=== PATIENT | female | born 1945 | race Caucasian/White ===

== ENCOUNTER → 2019-02-14 | Outpatient (CLI) | payer MEDICARE ==
--- NOTE | 2019-02-15 10:56 | CRLMY ---
INDICATION: Bilateral Screening Mammogram, Asymptomatic Female age 74 been obtained using full-field digital technique. These mammographic images were interpreted with the benefit of computer-aided detection. COMPARISON FILM: 01/20/17, 08/07/15. FINDINGS: The breast tissue is almost entirely fat. There are no masses or calcifications that are suspicious for malignancy. IMPRESSION: There is no radiographic evidence for malignancy. ASSESSMENT: BI-RADS Category 2: Benign RECOMMENDATION: Routine screening mammogram in 1 year. A lay language report of this examination will be provided to the patient. Breast Tomosynthesis was used in this interpretation. [email or web address] Dictated by: Alverto [email or web address] @ 02/15/2019 10:55:06 (Electronically Signed)
== END ==
LOC: JP.MAM 10:16
PROVIDERS: ATTEND Family Medicine
DX: Z12.31 Encounter for screening mammogram for malignant neoplasm of breast (principal)
CPT/HCPCS: 77063; 77067

== ENCOUNTER 2021-11-30 11:01 | Inpatient (IN) | payer MEDICARE ==
[2021-11-30] MEDS ORDERED: Sodium Chloride 0.9% 10 ML Syringe FLUSH PRN ×4 (11:05→15:40)
[2021-11-30 12:16] LABS: CORONAVIRUS COVID-19 NAA POSITIVE (NEGATIVE)
[2021-11-30] MEDS ORDERED: Sodium Chloride 0.9% 100 ML IV ONE (12:27)
[2021-11-30] MEDS ORDERED: Iopamidol 755 Mg/ML 100 ML Bottle IV SCH (12:30)
[2021-11-30] MEDS ORDERED: Aspirin 325 MG Tab.EC PO ONE (13:40)
[2021-11-30] MEDS ORDERED: Clopidogrel 75 MG Tab PO ONE (13:41)
[2021-11-30] MEDS ORDERED: Polyethylene Glycol 3350 Powder 17 GM Packet PO PRN (15:40)
[2021-11-30] MEDS ORDERED: Ondansetron 4 MG/2 ML SDV IV PRN (15:40)
[2021-11-30] MEDS: Enoxaparin 30 MG/0.3 ML Syringe SUBCUT SCH (16:17)
[2021-11-30] MEDS: Sodium Chloride 0.9% 1,000 ML IV SCH (17:36)
[2021-12-01] MEDS: Sodium Chloride 0.9% 1,000 ML IV SCH (01:53)
[2021-12-01] MEDS: Acetaminophen 325 MG Tab PO PRN ×3 (01:55→20:10)
[2021-12-01] MEDS: Aspirin 81 MG Tab.Chew PO SCH (08:36)
[2021-12-01] MEDS: Clopidogrel 75 MG Tab PO SCH (08:37)
[2021-12-01] MEDS ORDERED: Lisinopril 10 MG Tab PO SCH (14:15)
[2021-12-01] MEDS: Enoxaparin 30 MG/0.3 ML Syringe SUBCUT SCH (15:26)
[2021-12-01] MEDS: Pantoprazole 40 MG Tab.CR PO SCH (15:26)
[2021-12-01] MEDS: guaiFENesin 100 MG/5 ML Soln ML (118 ML Bottle) PO PRN (16:38)
[2021-12-01] MEDS ORDERED: Vancomycin 1 GM SDV IV SCH (18:00)
[2021-12-01] MEDS ORDERED: Meropenem 1 GM in Sodium Chloride 0.9% 100 ML IV SCH (18:00)
[2021-12-01] MEDS: Meropenem 500 MG in Sodium Chloride 0.9% 50 ML IV SCH (18:03)
[2021-12-01] MEDS: Levofloxacin/Dextrose 5%-Water 750 MG in Premix Bag 1 BAG IV SCH (19:57)
[2021-12-01] MEDS ORDERED: Vancomycin 2 GM in Sodium Chloride 0.9% 500 ML IV ONE (20:00)
[2021-12-01] MEDS ORDERED: ATORVASTATIN 40 MG PO SCH (21:00)
[2021-12-01] MEDS ORDERED: Water For Injection, Sterile 20 ML ONE (21:39)
[2021-12-02] MEDS: Acetaminophen 325 MG Tab PO PRN ×2 (03:38→22:26)
[2021-12-02] MEDS: Meropenem 500 MG in Sodium Chloride 0.9% 50 ML IV SCH ×2 (05:23→18:38)
[2021-12-02] MEDS ORDERED: Sodium Chloride 0.9% 1,000 ML IV SCH (08:15)
[2021-12-02] MEDS: Pantoprazole 40 MG Tab.CR PO SCH (08:40)
[2021-12-02] MEDS: Aspirin 81 MG Tab.Chew PO SCH (08:40)
[2021-12-02] MEDS: Clopidogrel 75 MG Tab PO SCH (08:40)
[2021-12-02] MEDS: Apixaban 5 MG Tab PO SCH ×3 (12:49→23:06)
[2021-12-02] MEDS: Diltiazem IR 30 MG Tab PO SCH ×4 (12:49→22:24)
[2021-12-02] MEDS: atorvaSTATin 20 MG Tab PO SCH (20:00)
[2021-12-02] MEDS: guaiFENesin 100 MG/5 ML Soln ML (118 ML Bottle) PO PRN (20:04)
[2021-12-02] MEDS ORDERED: LORazepam 1 MG Tab PO ONE (23:35)
[2021-12-03] MEDS: Diltiazem IR 30 MG Tab PO SCH ×4 (04:30→22:13)
[2021-12-03] MEDS: Meropenem 500 MG in Sodium Chloride 0.9% 50 ML IV SCH ×2 (05:45→17:28)
[2021-12-03] MEDS: Pantoprazole 40 MG Tab.CR PO SCH (07:34)
[2021-12-03] MEDS: Aspirin 81 MG Tab.Chew PO SCH (09:58)
[2021-12-03] MEDS: Magnesium Sulfate/Water 2 GM in Premix Bag 1 BAG IV SCH ×3 (09:58→22:12)
[2021-12-03] MEDS: Magnesium Oxide 400 MG Tab PO SCH ×2 (09:58→20:18)
[2021-12-03] MEDS: Apixaban 5 MG Tab PO SCH (12:13)
[2021-12-03] MEDS: Clopidogrel 75 MG Tab PO SCH (15:39)
[2021-12-03] MEDS: Levofloxacin/Dextrose 5%-Water 750 MG in Premix Bag 1 BAG IV SCH (20:16)
[2021-12-03] MEDS: atorvaSTATin 20 MG Tab PO SCH (20:18)
[2021-12-03] MEDS: Acetaminophen 325 MG Tab PO PRN (22:22)
[2021-12-04] MEDS: Diltiazem IR 30 MG Tab PO SCH ×4 (04:25→22:19)
[2021-12-04] MEDS: Meropenem 500 MG in Sodium Chloride 0.9% 50 ML IV SCH ×2 (05:23→17:38)
[2021-12-04] MEDS: Magnesium Oxide 400 MG Tab PO SCH ×2 (08:22→20:08)
[2021-12-04] MEDS: Enoxaparin 30 MG/0.3 ML Syringe SUBCUT SCH (08:22)
[2021-12-04] MEDS: Pantoprazole 40 MG Tab.CR PO SCH (08:22)
[2021-12-04] MEDS: Clopidogrel 75 MG Tab PO SCH (08:22)
[2021-12-04] MEDS: Aspirin 81 MG Tab.Chew PO SCH (08:22)
[2021-12-04] MEDS ORDERED: Potassium Chloride 20 MEQ Tab.ER PO ONE ×2 (09:00→15:00)
[2021-12-04] MEDS ORDERED: Enoxaparin 40 MG/0.4 ML Syringe SUBCUT SCH (09:00)
[2021-12-04] MEDS: Acetaminophen 325 MG Tab PO PRN (20:07)
[2021-12-04] MEDS: atorvaSTATin 20 MG Tab PO SCH (20:07)
[2021-12-05] MEDS: Diltiazem IR 30 MG Tab PO SCH ×2 (04:41→10:40)
[2021-12-05] MEDS: Meropenem 500 MG in Sodium Chloride 0.9% 50 ML IV SCH (05:00)
[2021-12-05] MEDS: Magnesium Oxide 400 MG Tab PO SCH ×2 (08:19→20:26)
[2021-12-05] MEDS: Enoxaparin 30 MG/0.3 ML Syringe SUBCUT SCH (08:19)
[2021-12-05] MEDS: Aspirin 81 MG Tab.Chew PO SCH (08:19)
[2021-12-05] MEDS: Clopidogrel 75 MG Tab PO SCH (08:20)
[2021-12-05] MEDS: Pantoprazole 40 MG Tab.CR PO SCH (08:21)
[2021-12-05] MEDS: Loperamide 2 MG Cap PO PRN (14:50)
[2021-12-05] MEDS: Levofloxacin/Dextrose 5%-Water 750 MG in Premix Bag 1 BAG IV SCH (18:06)
[2021-12-05] MEDS: Acetaminophen 325 MG Tab PO PRN ×2 (18:09→23:55)
[2021-12-05] MEDS: atorvaSTATin 20 MG Tab PO SCH (20:26)
[2021-12-05] MEDS: Melatonin 3 MG Tab PO PRN (21:49)
[2021-12-06] MEDS ORDERED: LORazepam 2 MG/ML SDV IVPUSH ONE (00:16)
[2021-12-06] MEDS ORDERED: Furosemide 20 MG/2 ML VIAL IVPUSH ONE (00:17)
[2021-12-06] MEDS: Pantoprazole 40 MG Tab.CR PO SCH (07:16)
[2021-12-06] MEDS: Aspirin 81 MG Tab.Chew PO SCH (08:10)
[2021-12-06] MEDS: Enoxaparin 30 MG/0.3 ML Syringe SUBCUT SCH (08:11)
[2021-12-06] MEDS: Magnesium Oxide 400 MG Tab PO SCH ×2 (08:11→20:58)
[2021-12-06] MEDS: Clopidogrel 75 MG Tab PO SCH (08:11)
[2021-12-06] MEDS ORDERED: Sodium Chloride 0.9% 10 ML Syringe FLUSH PRN (12:53)
[2021-12-06] MEDS ORDERED: Iopamidol 755 Mg/ML 100 ML Bottle IV SCH (13:00)
[2021-12-06] MEDS ORDERED: Sodium Chloride 0.9% 100 ML IV SCH (13:00)
[2021-12-06] MEDS ORDERED: Furosemide 40 MG/4 ML VIAL IVPUSH ONE (15:27)
[2021-12-06] MEDS ORDERED: Dexamethasone 4 MG/ML SDV IVPUSH SCH (16:00)
[2021-12-06] MEDS: Haloperidol Lactate 5 MG/ML SDV IVPUSH PRN ×3 (16:12→22:14)
[2021-12-06] MEDS: Acetaminophen 325 MG Tab PO PRN (16:12)
[2021-12-06] MEDS ORDERED: REMDESIVIR 200 MG in Sodium Chloride 0.9% 250 ML IV ONE (16:15)
[2021-12-06] MEDS ORDERED: Diltiazem 25 MG/5 ML SDV IVPUSH ONE (17:25)
[2021-12-06] MEDS: Diltiazem 100 MG in Sodium Chloride 0.9% 100 ML IV SCH (18:20)
[2021-12-06] MEDS: atorvaSTATin 20 MG Tab PO SCH (20:59)
[2021-12-06] MEDS: Melatonin 3 MG Tab PO PRN (22:14)
[2021-12-07] MEDS: Haloperidol Lactate 5 MG/ML SDV IVPUSH PRN ×6 (01:25→21:56)
[2021-12-07] MEDS ORDERED: Heparin Sodium 5,000 Units/ML Vial ONE (01:33)
[2021-12-07] MEDS ORDERED: Sodium Chloride 0.9% 100 ML ONE (03:45)
[2021-12-07] MEDS: Diltiazem 100 MG in Sodium Chloride 0.9% 100 ML IV SCH (03:53)
[2021-12-07] MEDS: Clopidogrel 75 MG Tab PO SCH (09:24)
[2021-12-07] MEDS: Magnesium Oxide 400 MG Tab PO SCH ×2 (09:24→20:13)
[2021-12-07] MEDS: Aspirin 81 MG Tab.Chew PO SCH (09:24)
[2021-12-07] MEDS: Enoxaparin 30 MG/0.3 ML Syringe SUBCUT SCH ×2 (09:24→20:15)
[2021-12-07] MEDS: Pantoprazole 40 MG Tab.CR PO SCH (09:24)
[2021-12-07] MEDS: LORazepam 0.5 MG Tab PO PRN ×4 (09:55→22:43)
[2021-12-07] MEDS ORDERED: Furosemide 20 MG/2 ML VIAL IVPUSH ONE (10:00)
[2021-12-07] MEDS: Loperamide 2 MG Cap PO PRN (10:28)
[2021-12-07] MEDS: REMDESIVIR 100 MG in Sodium Chloride 0.9% 100 ML IV SCH (15:44)
[2021-12-07] MEDS: Dexamethasone 4 MG/ML SDV IVPUSH SCH (15:45)
[2021-12-07] MEDS: Levofloxacin/Dextrose 5%-Water 750 MG in Premix Bag 1 BAG IV SCH (18:13)
[2021-12-07] MEDS: atorvaSTATin 20 MG Tab PO SCH (20:13)
[2021-12-08] MEDS: Haloperidol Lactate 5 MG/ML SDV IVPUSH PRN ×3 (00:41→10:53)
[2021-12-08] MEDS: LORazepam 0.5 MG Tab PO PRN ×4 (05:22→21:49)
[2021-12-08] MEDS ORDERED: Non-Formulary Medication 1 Each (Metformin [Glucophage Xr] 500 MG Tab.Er) PO SCH (07:30)
[2021-12-08] MEDS: Aspirin 81 MG Tab.EC PO SCH ×2 (07:42→08:08)
[2021-12-08] MEDS: metFORMIN 500 MG Tab PO SCH (07:42)
[2021-12-08] MEDS: Pantoprazole 40 MG Tab.CR PO SCH (07:42)
[2021-12-08] MEDS: Clopidogrel 75 MG Tab PO SCH ×2 (07:43→08:08)
[2021-12-08] MEDS: Enoxaparin 30 MG/0.3 ML Syringe SUBCUT SCH ×3 (07:43→21:49)
[2021-12-08] MEDS: Magnesium Oxide 400 MG Tab PO SCH ×3 (07:43→21:49)
[2021-12-08] MEDS ORDERED: Furosemide 20 MG/2 ML VIAL IVPUSH ONE (10:15)
[2021-12-08] MEDS: Dexamethasone 4 MG/ML SDV IVPUSH SCH (15:40)
[2021-12-08] MEDS: REMDESIVIR 100 MG in Sodium Chloride 0.9% 100 ML IV SCH (15:45)
[2021-12-08] MEDS: atorvaSTATin 20 MG Tab PO SCH (21:50)
[2021-12-09] MEDS: Acetaminophen 325 MG Tab PO PRN (00:43)
[2021-12-09] MEDS: LORazepam 0.5 MG Tab PO PRN ×2 (04:02→23:12)
[2021-12-09] MEDS: Pantoprazole 40 MG Tab.CR PO SCH (08:02)
[2021-12-09] MEDS: Enoxaparin 30 MG/0.3 ML Syringe SUBCUT SCH ×2 (08:03→20:26)
[2021-12-09] MEDS: metFORMIN 500 MG Tab PO SCH (08:05)
[2021-12-09] MEDS: Magnesium Oxide 400 MG Tab PO SCH ×2 (08:07→20:26)
[2021-12-09] MEDS: Clopidogrel 75 MG Tab PO SCH (08:07)
[2021-12-09] MEDS: Aspirin 81 MG Tab.EC PO SCH ×2 (08:09→08:14)
[2021-12-09] MEDS: guaiFENesin 100 MG/5 ML Soln 10 ML UD Cup PO PRN ×2 (08:36→14:36)
[2021-12-09] MEDS: Metoprolol Tartrate 25 MG Tab PO SCH ×2 (09:31→20:26)
[2021-12-09] MEDS ORDERED: Furosemide 20 MG/2 ML VIAL IVPUSH ONE (14:53)
[2021-12-09] MEDS: Dexamethasone 4 MG/ML SDV IVPUSH SCH (15:36)
[2021-12-09] MEDS: REMDESIVIR 100 MG in Sodium Chloride 0.9% 100 ML IV SCH (15:48)
[2021-12-09] MEDS: Levofloxacin/Dextrose 5%-Water 750 MG in Premix Bag 1 BAG IV SCH (20:16)
[2021-12-09] MEDS: atorvaSTATin 20 MG Tab PO SCH (20:27)
[2021-12-10] MEDS: Morphine 2 MG/ML SYRINGE IVPUSH PRN ×3 (01:07→22:24)
[2021-12-10] MEDS ORDERED: LORazepam 2 MG/ML SDV IVPUSH ONE (01:26)
[2021-12-10] MEDS: Pantoprazole 40 MG Tab.CR PO SCH (08:07)
[2021-12-10] MEDS: metFORMIN 500 MG Tab PO SCH (08:07)
[2021-12-10] MEDS: Clopidogrel 75 MG Tab PO SCH (08:37)
[2021-12-10] MEDS: Metoprolol Tartrate 25 MG Tab PO SCH ×2 (08:38→22:16)
[2021-12-10] MEDS: Aspirin 81 MG Tab.EC PO SCH (08:38)
[2021-12-10] MEDS: Magnesium Oxide 400 MG Tab PO SCH ×2 (08:39→22:16)
[2021-12-10] MEDS: Enoxaparin 30 MG/0.3 ML Syringe SUBCUT SCH ×2 (08:39→22:15)
[2021-12-10] MEDS ORDERED: Potassium Chloride 20 MEQ Tab.ER PO ONE (09:00)
[2021-12-10] MEDS: Haloperidol Lactate 5 MG/ML SDV IVPUSH PRN (10:04)
[2021-12-10] MEDS ORDERED: Divalproex Sodium Delayed-Release 125 MG Cap.Sprink PO ONE (10:30)
[2021-12-10] MEDS ORDERED: Furosemide 20 MG/2 ML VIAL IVPUSH ONE (11:30)
[2021-12-10] MEDS: LORazepam 0.5 MG Tab PO PRN (12:33)
[2021-12-10] MEDS ORDERED: LORazepam 0.5 MG Tab PO PRN (14:05)
[2021-12-10] MEDS: Dexamethasone 4 MG/ML SDV IVPUSH SCH (15:10)
[2021-12-10] MEDS: REMDESIVIR 100 MG in Sodium Chloride 0.9% 100 ML IV SCH (15:11)
[2021-12-10] MEDS: Divalproex Sodium Delayed-Release 125 MG Cap.Sprink PO SCH (16:30)
[2021-12-10] MEDS ORDERED: LORazepam 1 MG Tab PO PRN (17:04)
[2021-12-10] MEDS ORDERED: Melatonin 3 MG Tab PO SCH (21:00)
[2021-12-10] MEDS: atorvaSTATin 20 MG Tab PO SCH (22:16)
[2021-12-11] MEDS: Morphine 2 MG/ML SYRINGE IVPUSH PRN ×4 (01:45→13:43)
[2021-12-11] MEDS: metFORMIN 500 MG Tab PO SCH (09:36)
[2021-12-11] MEDS: Enoxaparin 30 MG/0.3 ML Syringe SUBCUT SCH ×2 (09:36→20:20)
[2021-12-11] MEDS: Doxycycline 100 MG in Sodium Chloride 0.9% 100 ML IV SCH ×2 (09:36→20:21)
[2021-12-11] MEDS: Metoprolol Tartrate 25 MG Tab PO SCH (09:36)
[2021-12-11] MEDS: Aspirin 81 MG Tab.EC PO SCH (09:37)
[2021-12-11] MEDS: Magnesium Oxide 400 MG Tab PO SCH (09:37)
[2021-12-11] MEDS: Divalproex Sodium Delayed-Release 125 MG Cap.Sprink PO SCH (09:37)
[2021-12-11] MEDS: Clopidogrel 75 MG Tab PO SCH (09:37)
[2021-12-11] MEDS: Pantoprazole 40 MG Tab.CR PO SCH (09:37)
[2021-12-11] MEDS ORDERED: LORazepam 2 MG/ML SDV IVPUSH ONE (11:30)
[2021-12-11] MEDS ORDERED: Furosemide 40 MG/4 ML VIAL IVPUSH ONE (12:22)
[2021-12-11] MEDS ORDERED: Heparin Sodium 5,000 UNITS in Sodium Chloride 0.9% 500 ML IV SCH (14:00)
[2021-12-11] MEDS: propofoL 100 ML IV SCH (16:13)
[2021-12-11] MEDS ORDERED: Rocuronium 50 MG/5 ML Vial ONE (16:16)
[2021-12-11] MEDS ORDERED: Propofol 200 MG/20 ML SDV ONE (16:16)
[2021-12-11] MEDS: Dexamethasone 4 MG/ML SDV IVPUSH SCH (17:18)
[2021-12-11] MEDS: Norepinephrine Bit/D5W Premix 4 MG in Premix Bag 1 BAG IV SCH (18:09)
[2021-12-11] MEDS: LORazepam 2 MG/ML SDV IVPUSH PRN (19:35)
[2021-12-11] MEDS: Metoprolol Tartrate 25 MG Tab OGTUBE SCH (20:19)
[2021-12-11] MEDS: atorvaSTATin 20 MG Tab OGTUBE SCH (20:20)
[2021-12-11] MEDS: Pantoprazole 40 MG Vial IVPUSH SCH (20:21)
[2021-12-12] MEDS: propofoL 100 ML IV SCH ×4 (02:11→23:09)
[2021-12-12] MEDS: Morphine 2 MG/ML SYRINGE IVPUSH PRN (03:01)
[2021-12-12] MEDS: Norepinephrine Bit/D5W Premix 4 MG in Premix Bag 1 BAG IV SCH ×2 (05:22→17:55)
[2021-12-12] MEDS: Doxycycline 100 MG in Sodium Chloride 0.9% 100 ML IV SCH ×2 (08:54→21:50)
[2021-12-12] MEDS: Aspirin 81 MG Tab.EC PO SCH (08:58)
[2021-12-12] MEDS: Aspirin 81 MG Tab.Chew OGTUBE SCH (08:59)
[2021-12-12] MEDS: Metoprolol Tartrate 25 MG Tab OGTUBE SCH ×2 (09:00→21:37)
[2021-12-12] MEDS: Clopidogrel 75 MG Tab SCH (09:00)
[2021-12-12] MEDS: Enoxaparin 30 MG/0.3 ML Syringe SUBCUT SCH ×2 (09:04→21:46)
[2021-12-12] MEDS ORDERED: Furosemide 20 MG/2 ML VIAL IVPUSH ONE (15:15)
[2021-12-12] MEDS: Dexamethasone 4 MG/ML SDV IVPUSH SCH (15:41)
[2021-12-12] MEDS: LORazepam 2 MG/ML SDV IVPUSH PRN (21:01)
[2021-12-12] MEDS: atorvaSTATin 20 MG Tab OGTUBE SCH (21:40)
[2021-12-12] MEDS: Pantoprazole 40 MG Vial IVPUSH SCH (21:43)
[2021-12-13] MEDS: propofoL 100 ML IV SCH ×4 (05:41→20:17)
[2021-12-13] MEDS: Metoprolol Tartrate 25 MG Tab OGTUBE SCH ×2 (08:31→21:02)
[2021-12-13] MEDS: Clopidogrel 75 MG Tab SCH (08:31)
[2021-12-13] MEDS: Aspirin 81 MG Tab.Chew OGTUBE SCH (08:32)
[2021-12-13] MEDS: LORazepam 2 MG/ML SDV IVPUSH PRN (08:32)
[2021-12-13] MEDS: Enoxaparin 30 MG/0.3 ML Syringe SUBCUT SCH ×2 (08:32→21:03)
[2021-12-13] MEDS: Doxycycline 100 MG in Sodium Chloride 0.9% 100 ML IV SCH ×2 (08:33→21:19)
[2021-12-13] MEDS: Dimethicone 20%/Zinc Oxide 25% 56 GM Spray Bottle TOP PRN (10:25)
[2021-12-13] MEDS: Norepinephrine Bit/D5W Premix 4 MG in Premix Bag 1 BAG IV SCH (11:44)
[2021-12-13] MEDS: Dexamethasone 4 MG/ML SDV IVPUSH SCH (16:12)
[2021-12-13] MEDS ORDERED: Sodium Chloride 0.9% 500 ML IV ONE (19:00)
[2021-12-13] MEDS: atorvaSTATin 20 MG Tab OGTUBE SCH (21:02)
[2021-12-13] MEDS: Pantoprazole 40 MG Vial IVPUSH SCH (21:03)
[2021-12-14] MEDS: propofoL 100 ML IV SCH ×5 (01:26→20:41)
[2021-12-14] MEDS: Aspirin 81 MG Tab.Chew OGTUBE SCH (08:44)
[2021-12-14] MEDS: Doxycycline 100 MG in Sodium Chloride 0.9% 100 ML IV SCH ×2 (08:45→20:33)
[2021-12-14] MEDS: Clopidogrel 75 MG Tab SCH (08:45)
[2021-12-14] MEDS: Metoprolol Tartrate 25 MG Tab OGTUBE SCH ×2 (08:46→20:30)
[2021-12-14] MEDS: Enoxaparin 30 MG/0.3 ML Syringe SUBCUT SCH (08:48)
[2021-12-14] MEDS: Heparin Sodium 5,000 UNITS in Sodium Chloride 0.9% 500 ML IV SCH (13:58)
[2021-12-14] MEDS: Dexamethasone 4 MG/ML SDV IVPUSH SCH (15:59)
[2021-12-14] MEDS: atorvaSTATin 20 MG Tab OGTUBE SCH (20:31)
[2021-12-14] MEDS: Enoxaparin 40 MG/0.4 ML Syringe SUBCUT SCH (20:32)
[2021-12-14] MEDS: Pantoprazole 40 MG Vial IVPUSH SCH (20:32)
[2021-12-15] MEDS: propofoL 100 ML IV SCH ×7 (00:35→23:25)
[2021-12-15] MEDS: Morphine 2 MG/ML SYRINGE IVPUSH PRN ×2 (02:36→11:50)
[2021-12-15] MEDS: Norepinephrine Bit/D5W Premix 4 MG in Premix Bag 1 BAG IV SCH ×2 (05:36→16:54)
[2021-12-15] MEDS: LORazepam 2 MG/ML SDV IVPUSH PRN ×2 (07:52→13:20)
[2021-12-15] MEDS: Metoprolol Tartrate 25 MG Tab OGTUBE SCH ×2 (09:23→21:17)
[2021-12-15] MEDS: Clopidogrel 75 MG Tab SCH (09:23)
[2021-12-15] MEDS: Aspirin 81 MG Tab.Chew OGTUBE SCH (09:23)
[2021-12-15] MEDS: Enoxaparin 40 MG/0.4 ML Syringe SUBCUT SCH ×2 (09:31→21:17)
[2021-12-15] MEDS: Doxycycline 100 MG in Sodium Chloride 0.9% 100 ML IV SCH ×2 (09:31→21:17)
[2021-12-15] MEDS ORDERED: Furosemide 20 MG/2 ML VIAL IVPUSH ONE ×2 (10:30→22:00)
[2021-12-15] MEDS: Magnesium Sulfate/Water 2 GM in Premix Bag 1 BAG IV SCH ×2 (10:41→16:58)
[2021-12-15] MEDS ORDERED: Sodium Chloride 0.9% 10 ML Syringe FLUSH ONE (12:34)
[2021-12-15] MEDS ORDERED: Sodium Chloride 0.9% 75 ML IV SCH (12:45)
[2021-12-15] MEDS ORDERED: Iopamidol 755 Mg/ML 100 ML Bottle IV SCH (12:45)
[2021-12-15] MEDS: Dexamethasone 4 MG/ML SDV IVPUSH SCH (16:46)
[2021-12-15] MEDS: atorvaSTATin 20 MG Tab OGTUBE SCH (21:17)
[2021-12-15] MEDS: Pantoprazole 40 MG Vial IVPUSH SCH (21:17)
[2021-12-16] MEDS: Norepinephrine Bit/D5W Premix 4 MG in Premix Bag 1 BAG IV SCH ×3 (00:08→19:50)
[2021-12-16] MEDS: LORazepam 2 MG/ML SDV IVPUSH PRN (02:25)
[2021-12-16] MEDS: propofoL 100 ML IV SCH ×5 (03:36→20:17)
[2021-12-16] MEDS: Piperacillin/Tazobactam/Dext 3.375 GM in Premix Bag 1 BAG IV SCH ×3 (08:35→20:11)
[2021-12-16] MEDS: Metoprolol Tartrate 25 MG Tab OGTUBE SCH ×2 (08:42→21:34)
[2021-12-16] MEDS: Enoxaparin 40 MG/0.4 ML Syringe SUBCUT SCH ×2 (08:42→20:02)
[2021-12-16] MEDS: Aspirin 81 MG Tab.Chew OGTUBE SCH (08:43)
[2021-12-16] MEDS: Clopidogrel 75 MG Tab SCH (08:50)
[2021-12-16] MEDS ORDERED: Furosemide 40 MG/4 ML VIAL IVPUSH ONE ×2 (09:00→21:00)
[2021-12-16] MEDS: Linezolid 600 MG in Premix Bag 1 BAG IV SCH ×2 (09:16→21:33)
[2021-12-16] MEDS: Levofloxacin/Dextrose 5%-Water 750 MG in Premix Bag 1 BAG IV SCH (10:29)
[2021-12-16] MEDS: Dexamethasone 4 MG/ML SDV IVPUSH SCH (16:00)
[2021-12-16] MEDS: Pantoprazole 40 MG Vial IVPUSH SCH (20:00)
[2021-12-16] MEDS: atorvaSTATin 20 MG Tab OGTUBE SCH (20:06)
[2021-12-17] MEDS: propofoL 100 ML IV SCH ×6 (00:10→22:27)
[2021-12-17] MEDS: Dimethicone 20%/Zinc Oxide 25% 56 GM Spray Bottle TOP PRN ×2 (02:36→21:40)
[2021-12-17] MEDS: Piperacillin/Tazobactam/Dext 3.375 GM in Premix Bag 1 BAG IV SCH ×4 (03:30→20:53)
[2021-12-17] MEDS: Aspirin 81 MG Tab.Chew OGTUBE SCH (08:48)
[2021-12-17] MEDS: Clopidogrel 75 MG Tab SCH (08:48)
[2021-12-17] MEDS: Metoprolol Tartrate 25 MG Tab OGTUBE SCH ×2 (08:48→20:52)
[2021-12-17] MEDS: Enoxaparin 40 MG/0.4 ML Syringe SUBCUT SCH ×2 (08:54→20:53)
[2021-12-17] MEDS: Linezolid 600 MG in Premix Bag 1 BAG IV SCH ×2 (09:12→21:35)
[2021-12-17] MEDS ORDERED: 50% Dextrose in Water 50 ML Syringe IV PRN (10:41)
[2021-12-17] MEDS ORDERED: Glucose Gel 15 GM in 37.5 GM Tube PO PRN (10:41)
[2021-12-17] MEDS ORDERED: Furosemide 40 MG/4 ML VIAL IVPUSH ONE ×2 (11:00→22:00)
[2021-12-17] MEDS: Insulin Lispro 100 Unit/ML 3 ML KwikPen SUBCUT SCH ×3 (11:17→20:49)
[2021-12-17] MEDS: Norepinephrine Bit/D5W Premix 4 MG in Premix Bag 1 BAG IV SCH (11:58)
[2021-12-17] MEDS: Heparin Sodium 5,000 UNITS in Sodium Chloride 0.9% 500 ML IV SCH (15:20)
[2021-12-17] MEDS: Dexamethasone 4 MG/ML SDV IVPUSH SCH (15:53)
[2021-12-17] MEDS: Loperamide 1 MG/7.5 ML 7.5 ML UD Cup PO PRN (18:36)
[2021-12-17] MEDS: atorvaSTATin 20 MG Tab OGTUBE SCH (20:52)
[2021-12-17] MEDS: Pantoprazole 40 MG Vial IVPUSH SCH (20:56)
[2021-12-18] MEDS: Norepinephrine Bit/D5W Premix 4 MG in Premix Bag 1 BAG IV SCH (00:18)
[2021-12-18] MEDS: Dimethicone 20%/Zinc Oxide 25% 56 GM Spray Bottle TOP PRN (00:19)
[2021-12-18] MEDS: Piperacillin/Tazobactam/Dext 3.375 GM in Premix Bag 1 BAG IV SCH ×4 (02:12→19:51)
[2021-12-18] MEDS: LORazepam 2 MG/ML SDV IVPUSH PRN (04:00)
[2021-12-18] MEDS: propofoL 100 ML IV SCH ×5 (04:06→23:57)
[2021-12-18] MEDS: Insulin Lispro 100 Unit/ML 3 ML KwikPen SUBCUT SCH ×4 (04:38→23:06)
[2021-12-18] MEDS: Magnesium Sulfate/Water 2 GM in Premix Bag 1 BAG IV SCH ×3 (07:42→19:51)
[2021-12-18] MEDS: Linezolid 600 MG in Premix Bag 1 BAG IV SCH ×2 (08:57→20:52)
[2021-12-18] MEDS: Enoxaparin 40 MG/0.4 ML Syringe SUBCUT SCH ×2 (08:59→20:55)
[2021-12-18] MEDS ORDERED: Furosemide 20 MG/2 ML VIAL IVPUSH ONE ×2 (09:00→23:00)
[2021-12-18] MEDS: Aspirin 81 MG Tab.Chew OGTUBE SCH (09:02)
[2021-12-18] MEDS: Metoprolol Tartrate 25 MG Tab OGTUBE SCH ×2 (09:03→20:55)
[2021-12-18] MEDS: Clopidogrel 75 MG Tab SCH (09:03)
[2021-12-18] MEDS: Levofloxacin/Dextrose 5%-Water 750 MG in Premix Bag 1 BAG IV SCH (10:21)
[2021-12-18] MEDS: Loperamide 1 MG/7.5 ML 7.5 ML UD Cup PO PRN (10:21)
[2021-12-18] MEDS ORDERED: Furosemide 20 MG/2 ML VIAL IV ONE (13:55)
[2021-12-18] MEDS: Norepinephrine 8 MG in Dextrose 5% in Water 242 ML IV SCH ×4 (15:16→16:14)
[2021-12-18] MEDS: Dexamethasone 4 MG/ML SDV IVPUSH SCH (15:36)
[2021-12-18] MEDS ORDERED: Sodium Chloride 0.9% 500 ML IV ONE (16:10)
[2021-12-18] MEDS: Pantoprazole 40 MG Vial IVPUSH SCH (20:53)
[2021-12-18] MEDS: atorvaSTATin 20 MG Tab OGTUBE SCH (20:54)
[2021-12-19] MEDS: Piperacillin/Tazobactam/Dext 3.375 GM in Premix Bag 1 BAG IV SCH ×4 (02:29→20:46)
[2021-12-19] MEDS: Insulin Lispro 100 Unit/ML 3 ML KwikPen SUBCUT SCH ×4 (04:56→22:39)
[2021-12-19] MEDS: propofoL 100 ML IV SCH ×4 (05:36→20:14)
[2021-12-19] MEDS ORDERED: Furosemide 40 MG/4 ML VIAL IVPUSH ONE (08:12)
[2021-12-19] MEDS: Clopidogrel 75 MG Tab SCH (08:56)
[2021-12-19] MEDS: Aspirin 81 MG Tab.Chew OGTUBE SCH (08:56)
[2021-12-19] MEDS: Enoxaparin 40 MG/0.4 ML Syringe SUBCUT SCH ×2 (08:56→20:49)
[2021-12-19] MEDS: Metoprolol Tartrate 25 MG Tab OGTUBE SCH ×2 (08:56→20:48)
[2021-12-19] MEDS: Linezolid 600 MG in Premix Bag 1 BAG IV SCH ×2 (08:57→20:58)
[2021-12-19] MEDS: Furosemide 20 MG/2 ML VIAL IVPUSH SCH ×2 (09:04→16:24)
[2021-12-19] MEDS: Loperamide 1 MG/7.5 ML 7.5 ML UD Cup PO PRN ×2 (11:01→14:35)
[2021-12-19] MEDS: Dexamethasone 2 MG Tab PO SCH (11:01)
[2021-12-19] MEDS: Norepinephrine 8 MG in Dextrose 5% in Water 242 ML IV SCH ×2 (14:27)
[2021-12-19] MEDS ORDERED: Sodium Chloride 0.9% 10 ML SDV IV ONE (19:40)
[2021-12-19] MEDS ORDERED: Sodium Chloride 0.9% 500 ML IV ONE (20:00)
[2021-12-19] MEDS: atorvaSTATin 20 MG Tab OGTUBE SCH (20:48)
[2021-12-19] MEDS: Pantoprazole 40 MG Vial IVPUSH SCH (20:49)
[2021-12-19] MEDS: LORazepam 2 MG/ML SDV IVPUSH PRN (20:51)
[2021-12-19] MEDS: Morphine 2 MG/ML SYRINGE IVPUSH PRN (22:32)
[2021-12-20] MEDS: propofoL 100 ML IV SCH ×5 (00:09→22:24)
[2021-12-20] MEDS ORDERED: Heparin Sodium/D5W 500 ML ONE (00:29)
[2021-12-20] MEDS ORDERED: Heparin Sodium 5,000 Units/ML Vial ONE (00:29)
[2021-12-20] MEDS: Furosemide 20 MG/2 ML VIAL IVPUSH SCH (00:29)
[2021-12-20] MEDS ORDERED: Heparin Sodium/D5W 25,000 UNITS/500 ML BAG IV SCH (00:30)
[2021-12-20] MEDS ORDERED: Heparin Sodium 5,000 Units/ML Vial IV ONE (00:45)
[2021-12-20] MEDS: Piperacillin/Tazobactam/Dext 3.375 GM in Premix Bag 1 BAG IV SCH ×4 (01:55→20:24)
[2021-12-20] MEDS: Insulin Lispro 100 Unit/ML 3 ML KwikPen SUBCUT SCH ×4 (04:23→22:44)
[2021-12-20] MEDS: Linezolid 600 MG in Premix Bag 1 BAG IV SCH ×2 (08:44→20:29)
[2021-12-20] MEDS: Metoprolol Tartrate 25 MG Tab OGTUBE SCH ×2 (09:15→20:29)
[2021-12-20] MEDS: Aspirin 81 MG Tab.Chew OGTUBE SCH (09:15)
[2021-12-20] MEDS: Clopidogrel 75 MG Tab SCH (09:15)
[2021-12-20] MEDS: Dexamethasone 2 MG Tab PO SCH (09:16)
[2021-12-20] MEDS: Levofloxacin/Dextrose 5%-Water 750 MG in Premix Bag 1 BAG IV SCH (10:16)
[2021-12-20] MEDS: Heparin Sodium 5,000 UNITS in Sodium Chloride 0.9% 500 ML IV SCH (13:53)
[2021-12-20] MEDS: Norepinephrine 8 MG in Dextrose 5% in Water 242 ML IV SCH ×2 (13:55)
[2021-12-20] MEDS: Pantoprazole 40 MG Vial IVPUSH SCH (20:29)
[2021-12-20] MEDS: atorvaSTATin 20 MG Tab OGTUBE SCH (20:29)
[2021-12-21] MEDS: Loperamide 1 MG/7.5 ML 7.5 ML UD Cup PO PRN ×3 (00:56→14:20)
[2021-12-21] MEDS: propofoL 100 ML IV SCH ×6 (01:21→19:48)
[2021-12-21] MEDS: Piperacillin/Tazobactam/Dext 3.375 GM in Premix Bag 1 BAG IV SCH ×4 (03:27→20:03)
[2021-12-21] MEDS: Insulin Lispro 100 Unit/ML 3 ML KwikPen SUBCUT SCH ×4 (04:37→23:01)
[2021-12-21] MEDS: Linezolid 600 MG in Premix Bag 1 BAG IV SCH (08:42)
[2021-12-21] MEDS: Metoprolol Tartrate 25 MG Tab OGTUBE SCH ×2 (08:49→16:07)
[2021-12-21] MEDS: Dexamethasone 2 MG Tab PO SCH (08:50)
[2021-12-21] MEDS: Clopidogrel 75 MG Tab SCH (08:50)
[2021-12-21] MEDS: Aspirin 81 MG Tab.Chew OGTUBE SCH (08:51)
[2021-12-21] MEDS: Enoxaparin 30 MG/0.3 ML Syringe SUBCUT SCH (11:44)
[2021-12-21] MEDS: Pantoprazole 40 MG Vial IVPUSH SCH (20:36)
[2021-12-21] MEDS: atorvaSTATin 20 MG Tab OGTUBE SCH (20:36)
[2021-12-22] MEDS: Metoprolol Tartrate 25 MG Tab OGTUBE SCH ×3 (00:19→15:48)
[2021-12-22] MEDS: propofoL 100 ML IV SCH ×2 (01:53→21:50)
[2021-12-22] MEDS: Piperacillin/Tazobactam/Dext 3.375 GM in Premix Bag 1 BAG IV SCH ×3 (02:21→14:02)
[2021-12-22] MEDS: Insulin Lispro 100 Unit/ML 3 ML KwikPen SUBCUT SCH ×4 (04:37→23:03)
[2021-12-22] MEDS: Loperamide 1 MG/7.5 ML 7.5 ML UD Cup PO PRN ×2 (05:09→09:48)
[2021-12-22] MEDS: Aspirin 81 MG Tab.Chew OGTUBE SCH (08:01)
[2021-12-22] MEDS: Dexamethasone 2 MG Tab PO SCH (08:01)
[2021-12-22] MEDS: Clopidogrel 75 MG Tab SCH (08:01)
[2021-12-22] MEDS: LORazepam 2 MG/ML SDV IVPUSH PRN ×3 (08:05→20:25)
[2021-12-22] MEDS ORDERED: Furosemide 40 MG/4 ML VIAL IVPUSH ONE (08:30)
[2021-12-22] MEDS: Levofloxacin/Dextrose 5%-Water 750 MG in Premix Bag 1 BAG IV SCH (09:48)
[2021-12-22] MEDS: Morphine 2 MG/ML SYRINGE IVPUSH PRN ×3 (11:10→22:10)
[2021-12-22] MEDS: Enoxaparin 30 MG/0.3 ML Syringe SUBCUT SCH (11:44)
[2021-12-22] MEDS ORDERED: Furosemide 20 MG/2 ML VIAL IVPUSH ONE (18:00)
[2021-12-22] MEDS: Pantoprazole 40 MG Vial IVPUSH SCH (21:00)
[2021-12-22] MEDS: atorvaSTATin 20 MG Tab OGTUBE SCH (21:00)
[2021-12-23] MEDS: Metoprolol Tartrate 25 MG Tab OGTUBE SCH ×3 (00:02→16:23)
[2021-12-23] MEDS: Insulin Lispro 100 Unit/ML 3 ML KwikPen SUBCUT SCH ×4 (04:53→22:29)
[2021-12-23] MEDS ORDERED: Magnesium Sulfate/Water 2 GM in Premix Bag 1 BAG IV ONE ×2 (06:09→08:30)
[2021-12-23] MEDS: Diltiazem 100 MG in Sodium Chloride 0.9% 100 ML IV SCH ×2 (06:32→22:29)
[2021-12-23] MEDS: Dexamethasone 2 MG Tab NGTUBE SCH (08:21)
[2021-12-23] MEDS: Clopidogrel 75 MG Tab SCH (08:23)
[2021-12-23] MEDS: Aspirin 81 MG Tab.Chew OGTUBE SCH (08:23)
[2021-12-23] MEDS: LORazepam 2 MG/ML SDV IVPUSH PRN ×3 (10:46→19:49)
[2021-12-23] MEDS: Enoxaparin 30 MG/0.3 ML Syringe SUBCUT SCH (10:54)
[2021-12-23] MEDS: Morphine 2 MG/ML SYRINGE IVPUSH PRN ×2 (14:53→18:52)
[2021-12-23] MEDS: Pantoprazole 40 MG Vial IVPUSH SCH (20:19)
[2021-12-23] MEDS: atorvaSTATin 20 MG Tab OGTUBE SCH (20:19)
[2021-12-24] MEDS: Metoprolol Tartrate 25 MG Tab OGTUBE SCH ×4 (00:24→23:53)
[2021-12-24] MEDS: LORazepam 2 MG/ML SDV IVPUSH PRN (04:38)
[2021-12-24] MEDS: Insulin Lispro 100 Unit/ML 3 ML KwikPen SUBCUT SCH ×4 (04:44→22:59)
[2021-12-24] MEDS: Morphine 2 MG/ML SYRINGE IVPUSH PRN ×3 (07:27→22:56)
[2021-12-24] MEDS: Dexamethasone 2 MG Tab NGTUBE SCH (09:40)
[2021-12-24] MEDS: Aspirin 81 MG Tab.Chew OGTUBE SCH (09:41)
[2021-12-24] MEDS: Clopidogrel 75 MG Tab SCH (09:41)
[2021-12-24] MEDS: Loperamide 1 MG/7.5 ML 7.5 ML UD Cup PO PRN ×2 (10:00→23:50)
[2021-12-24] MEDS ORDERED: Furosemide 20 MG/2 ML VIAL IVPUSH ONE (10:50)
[2021-12-24] MEDS: Enoxaparin 30 MG/0.3 ML Syringe SUBCUT SCH (11:26)
[2021-12-24] MEDS: Pantoprazole 40 MG Vial IVPUSH SCH (20:29)
[2021-12-24] MEDS: atorvaSTATin 20 MG Tab OGTUBE SCH (20:29)
[2021-12-25] MEDS: Morphine 2 MG/ML SYRINGE IVPUSH PRN ×5 (01:49→15:40)
[2021-12-25] MEDS: LORazepam 2 MG/ML SDV IVPUSH PRN ×2 (02:59→09:34)
[2021-12-25] MEDS: Insulin Lispro 100 Unit/ML 3 ML KwikPen SUBCUT SCH ×4 (05:09→23:32)
[2021-12-25] MEDS: Aspirin 81 MG Tab.Chew OGTUBE SCH (08:58)
[2021-12-25] MEDS: Clopidogrel 75 MG Tab SCH (08:58)
[2021-12-25] MEDS: Dexamethasone 2 MG Tab NGTUBE SCH (08:58)
[2021-12-25] MEDS: Metoprolol Tartrate 25 MG Tab OGTUBE SCH ×3 (08:58→23:34)
[2021-12-25] MEDS: Enoxaparin 30 MG/0.3 ML Syringe SUBCUT SCH (11:19)
[2021-12-25] MEDS: Cefepime 1 GM in Sodium Chloride 0.9% 50 ML IV SCH ×2 (12:21→20:05)
[2021-12-25] MEDS: Doxycycline 100 MG in Sodium Chloride 0.9% 100 ML IV SCH (13:03)
[2021-12-25] MEDS: atorvaSTATin 20 MG Tab OGTUBE SCH (20:25)
[2021-12-25] MEDS: Pantoprazole 40 MG Vial IVPUSH SCH (20:25)
[2021-12-26] MEDS: Doxycycline 100 MG in Sodium Chloride 0.9% 100 ML IV SCH ×2 (01:59→13:07)
[2021-12-26] MEDS: Cefepime 1 GM in Sodium Chloride 0.9% 50 ML IV SCH ×3 (03:06→20:20)
[2021-12-26] MEDS: Insulin Lispro 100 Unit/ML 3 ML KwikPen SUBCUT SCH ×4 (04:53→22:58)
[2021-12-26] MEDS: Morphine 2 MG/ML SYRINGE IVPUSH PRN ×3 (07:31→16:16)
[2021-12-26] MEDS: Dexamethasone 2 MG Tab NGTUBE SCH (09:05)
[2021-12-26] MEDS: Aspirin 81 MG Tab.Chew OGTUBE SCH (09:05)
[2021-12-26] MEDS: Clopidogrel 75 MG Tab SCH (09:05)
[2021-12-26] MEDS: Metoprolol Tartrate 25 MG Tab OGTUBE SCH ×2 (09:05→16:14)
[2021-12-26] MEDS ORDERED: Furosemide 20 MG/2 ML VIAL IVPUSH ONE (10:15)
[2021-12-26] MEDS: Enoxaparin 30 MG/0.3 ML Syringe SUBCUT SCH (10:34)
[2021-12-26] MEDS ORDERED: Albumin Human 25 GM in Premix Bag 1 BAG IV ONE (11:00)
[2021-12-26] MEDS: LORazepam 2 MG/ML SDV IVPUSH PRN (14:09)
[2021-12-26] MEDS: LORazepam 0.5 MG Tab NGTUBE PRN (16:44)
[2021-12-26] MEDS: Morphine 4 MG/ML Syringe IVPUSH PRN ×2 (18:12→23:01)
[2021-12-26] MEDS: atorvaSTATin 20 MG Tab OGTUBE SCH (20:20)
[2021-12-26] MEDS: Pantoprazole 40 MG Vial IVPUSH SCH (20:20)
[2021-12-27] MEDS: Metoprolol Tartrate 25 MG Tab OGTUBE SCH ×3 (00:50→16:52)
[2021-12-27] MEDS: Doxycycline 100 MG in Sodium Chloride 0.9% 100 ML IV SCH ×2 (00:50→12:58)
[2021-12-27] MEDS: Cefepime 1 GM in Sodium Chloride 0.9% 50 ML IV SCH ×3 (04:49→19:28)
[2021-12-27] MEDS: Morphine 4 MG/ML Syringe IVPUSH PRN ×3 (04:51→17:39)
[2021-12-27] MEDS: Insulin Lispro 100 Unit/ML 3 ML KwikPen SUBCUT SCH ×3 (05:01→16:53)
[2021-12-27] MEDS: LORazepam 0.5 MG Tab NGTUBE PRN ×2 (07:58→08:34)
[2021-12-27] MEDS: Aspirin 81 MG Tab.Chew OGTUBE SCH (08:29)
[2021-12-27] MEDS: Clopidogrel 75 MG Tab SCH (08:29)
[2021-12-27] MEDS: Dexamethasone 2 MG Tab NGTUBE SCH (08:29)
[2021-12-27] MEDS ORDERED: Albumin Human 25 GM in Premix Bag 1 BAG IV ONE (10:30)
[2021-12-27] MEDS: Enoxaparin 30 MG/0.3 ML Syringe SUBCUT SCH (11:55)
[2021-12-27] MEDS ORDERED: Furosemide 20 MG/2 ML VIAL IVPUSH ONE (13:00)
[2021-12-27] MEDS ORDERED: Sodium Chloride 0.9% 500 ML IV ONE (18:30)
[2021-12-27] MEDS: atorvaSTATin 20 MG Tab OGTUBE SCH (20:42)
[2021-12-27] MEDS: Pantoprazole 40 MG Vial IVPUSH SCH (20:43)
[2021-12-27 20:49] VITALS: BP 103/49; PULSE 89
== END 2021-12-27 21:59 | disposition expired | DRG 207 ==
LOC: JP.ED 11:01 → JP.ICU 14:08 → JP.MS 12-01 08:59 → OBSVTOIN 12-02 11:53 → JP.ICU 12-06 17:35 → JP.MS 12-08 14:56 → JP.ICU 12-11 15:36
PROVIDERS: ADMIT Hospitalist; ATTEND Internal Medicine
PROC: XW033N5 Introduction of Meropenem-vaborbactam Anti-infective into Peripheral Vein, Percutaneous Approach, New Technology Group 5 (ICD-10-PCS; 2021-12-01)
PROC: 8E0ZXY6 Isolation (ICD-10-PCS; 2021-12-02)
PROC: XW033E5 Introduction of Remdesivir Anti-infective into Peripheral Vein, Percutaneous Approach, New Technology Group 5 (ICD-10-PCS; 2021-12-06)
PROC: XW0DXM6 Introduction of Baricitinib into Mouth and Pharynx, External Approach, New Technology Group 6 (ICD-10-PCS; 2021-12-06)
PROC: 3E0333Z Introduction of Anti-inflammatory into Peripheral Vein, Percutaneous Approach (ICD-10-PCS; 2021-12-07)
PROC: 5A0955A Assistance with Respiratory Ventilation, Greater than 96 Consecutive Hours, High Flow/Velocity Cannula (ICD-10-PCS; 2021-12-07)
PROC: 0BH17EZ Insertion of Endotracheal Airway into Trachea, Via Natural or Artificial Opening (ICD-10-PCS; principal; 2021-12-11)
PROC: 5A1955Z Respiratory Ventilation, Greater than 96 Consecutive Hours (ICD-10-PCS; 2021-12-11)
PROC: 03HB33Z Insertion of Infusion Device into Right Radial Artery, Percutaneous Approach (ICD-10-PCS; 2021-12-11)
PROC: 3E033XZ Introduction of Vasopressor into Peripheral Vein, Percutaneous Approach (ICD-10-PCS; 2021-12-11)
PROC: 0DH67UZ Insertion of Feeding Device into Stomach, Via Natural or Artificial Opening (ICD-10-PCS; 2021-12-18)
PROC: 30233N1 Transfusion of Nonautologous Red Blood Cells into Peripheral Vein, Percutaneous Approach (ICD-10-PCS; 2021-12-20)
DX: I63.9 Cerebral infarction, unspecified (principal); U07.1 COVID-19; J12.82 Pneumonia due to coronavirus disease 2019; I21.A1 Myocardial infarction type 2; J80 Acute respiratory distress syndrome; N28.9 Disorder of kidney and ureter, unspecified; J18.9 Pneumonia, unspecified organism; R47.01 Aphasia; N17.9 Acute kidney failure, unspecified; G45.9 Transient cerebral ischemic attack, unspecified; R29.810 Facial weakness; Z66 Do not resuscitate; I65.23 Occlusion and stenosis of bilateral carotid arteries; E78.5 Hyperlipidemia, unspecified; N18.30 Chronic kidney disease, stage 3 unspecified; R45.1 Restlessness and agitation; E11.22 Type 2 diabetes mellitus with diabetic chronic kidney disease; M06.9 Rheumatoid arthritis, unspecified; R29.703 NIHSS score 3; D63.1 Anemia in chronic kidney disease; I48.91 Unspecified atrial fibrillation; F41.9 Anxiety disorder, unspecified; Z88.4 Allergy status to anesthetic agent; Z79.84 Long term (current) use of oral hypoglycemic drugs; Z79.82 Long term (current) use of aspirin; Z79.899 Other long term (current) drug therapy; Z88.8 Allergy status to other drugs, medicaments and biological substances
CPT/HCPCS: 0241U; 36415; 36430; 36569; 36600; 51702; 70450; 70450-26; 70551; 71045; 71045-26; 71275; 71275-26; 74018; 74018-26; 80048; 80053; 80061; 81001; 82803; 82947; 83605; 83735; 83880; 84145; 84443; 84484; 85018; 85025; 85027; 85379; 85730; 86140; 86850; 86900; 86901; 86920; 86922; 87040; 87493; 93005; 93010; 93306; 93880; 93880-26; 94002; 94003; 94762; 96365; 96366; 96367; 96372; 96376; 97110-GP; 97116-GP; 97140-GP; 97162-GP; 97164-GP; 97530-GP; 99285; 99285-25; A9270-GY; C1751; C9113; G0378; J0248; J0692; J0713; J1100; J1630; J1644; J1650; J1815; J1940; J1956; J2020; J2060; J2185; J2270; J2543; J2704; J3370; J3475; J3490; J7030; J7040; J7050; J7060; J8540; P9016; P9047; Q9967